=== PATIENT | male | born 2000 | race Caucasian/White ===

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

== ENCOUNTER 2021-02-13 07:03 | Outpatient (CLI) | payer SELFPAY ==
--- NOTE | 2021-02-13 07:14 | MR_ITS ---
WS: [id number] MRI RIGHT KNEE NONCONTRAST TECHNIQUE: Axial PD, coronal PD fat sat, coronal PD, sagittal PD, and sagittal PD fat-sat images obta ined. CLINICAL INFORMATION: RIGHT KNEE PAIN COMPARISON: None. FINDINGS: Distal quadriceps and patella tendons are intact. Small suprapatellar effusion. Normal ACL and PCL. C omplex tear involving the posterior horn lateral meniscus extending to the articular surface. Bluntin g of the posterior horn lateral meniscus with bucket-handle tear. Majority of the meniscus appears di splaced medially adjacent to the cruciate ligaments. Medial meniscus is normal in appearance. No bony contusion. Normal patella. No significant chondromalacia patella. Normal medial and lateral patellar retinaculum . Normal medial collateral ligament. Ligamentous injury involving the lateral collateral ligament wit h fluid and edema deep to the LCL. LCL appears intact. MR/MR knee RT wo con* [id number] IMPRESSION: 1. Normal anterior and posterior cruciate ligaments. 2. Complex bucket handle tear involving the lateral meniscus extending to the posterior horn articular surface with fluid and edema. Majority of the meniscu s displaced medially adjacent to the cruciate ligaments. 3. Ligamentous injury involving the lateral collateral ligament with fluid and edema deep to the LCL which appears grossly intact. Normal MCL. 4. Small suprapatellar effusion. 5. Normal patella.
== END 2021-02-13 07:04 | disposition home or self-care (01) ==
PROVIDERS: PCP Family Medicine; Visit Provider Nurse Practitioner Family
DX: M25.461 Effusion, right knee (principal); S83.271A Complex tear of lateral meniscus, current injury, right knee, initial encounter; X58.XXXA Exposure to other specified factors, initial encounter
CPT/HCPCS: 73721

== ENCOUNTER 2024-02-10 20:32 | Emergency (ER) | payer SELFPAY ==
[2024-02-10 20:33] VITALS: BP 150/90; PULSE 95; RESP 16; TEMP 36.7; O2SAT 99; BMI 21.9
--- NOTE | 2024-02-10 20:41 | ED_ITS ---
HPI - Overdose 2 General: Chief Complaint: Overdose Stated Complaint: overdose Time Seen by Provider: 02/10/24 20:34 Source: patient and EMS Mode of arrival: EMS Limitations: no limitations History of Present Illness: 23-year-old male states he had a history of drug abuse states he been clean and then today he had taken oxy. He states he is taking it recreational he states he took it roughly an hour or so ago patient was found unresponsive in a parking lot when EMS arrived he is diaphoretic with pinpoint pupils patient given Narcan he is now awake alert. Patient states that he did take the oxine regrets that he states he was just recreationally denies any SI or HI he has no complaints currently states he feels fine. Review of Systems 2 Const: Denies: fever(s), chills, body aches or change in appetite Eyes: Denies: blurry vision or eye discomfort ENMT: Denies: throat pain or dental pain Card: Denies: chest pain Resp: Denies: dyspnea GI: Denies: abdominal pain, nausea, vomiting or diarrhea : Denies: dysuria Musc: Denies: neck pain or back pain Skin/Breast: Denies: rash Neuro: Denies: headache(s) PFSH ED 2 PFSH: Social History Smoking and tobacco/nicotine status: never used tobacco/nicotine Physical Exam 2 Const: COMMON NORMALS: no acute distress, patient oriented x3 and healthy appearing HENMT: COMMON NORMALS: normocephalic and atraumatic HEAD & SCALP: n ormocephalic and atraumatic Eye: COMMON NORMALS: Equal, round and reactive pupils present and EOMs intact bilaterally PUPIL: Yes Equal, round and reactive pupils present Neck/C-Spine: COMMON NORMALS: full ROM and supple Chest: COMMONS NORMALS: normal inspection of the chest and normal palpation of entire chest wall Resp: COMMON NORMALS: normal respiratory effort, No retractions, No use of accessory muscles and clear to auscultation bilaterally AUSCULTATION: clear to auscultation bilaterally Cardio: COMMON NORMALS: regular rate, regular rhythm and No murmurs present (Cardio) RATE: regular rate RHYTHM: regular rhythm GI: COMMON NORMALS: Normal to inspection, nondistended, normoactive bowel sounds present, Soft to palpation, non-tender and no masses PALPATION: Yes Soft to palpation Extremity: COMMON NORMALS: normal to inspection and full ROM Neuro: COMMON NORMALS: patient oriented x3, moves all extremities and no focal motor deficits Psych: COMMON NORMALS: mental status grossly normal, Normal thought process present and cooperative THOUGHT PROCESS: Normal thought process present Skin: COMMON NORMALS: no rashes or lesions noted and no wounds GENERAL SKIN EXAM: no rashes or lesions noted Course 2 Vital Signs: Vital signs: Vital Signs Temperature 98.0 F 02/10/24 20:33 Pulse Rate 81 02/10/24 21:43 Respiratory Rate 22 H 02/10/24 21:09 Blood Pressure 150/58 02/10/24 21:43 Pulse Oximetry 96 02/10/24 21:43 Oxygen Delivery Me thod Room Air 02/10/24 21:09 MDM - Overdose Medical Decision Making Patient presents here with accidental overdose on opioid he is given Narcan by EMS observed him here he has been well-appearing he is stable for discharge he is follow-up with PCP return if worsening Medical Records I reviewed the patient's medical records. Lab Data I reviewed the patient's lab results. 02/10/24 20:34 02/10/24 20:34 Laboratory Results WBC 11.63 10^3/uL (3.29-11.43) H 02/10/24 20:34 RBC 4.94 10^6/uL (3.85-5.65) 02/10/24 20:34 Hgb 14.40 g/dL (11.27-16.99) 02/10/24 20:34 Hct 44.3 % (37-53) 02/10/24 20:34 MCV 89.7 fl (82-101) 02/10/24 20:34 MCH 29.1 pg (27-33) 02/10/24 20:34 MCHC 32.5 g/dL (30-55) 02/10/24 20:34 RDW 13.8 % (12.1-15.1) 02/10/24 20:34 Plt Count 259 10^3/cmm (157-399) 02/10/24 20:34 MPV 12.4 fL (7.4-10.4) H 02/10/24 20:34 Neut % (Auto) 54.1 % 02/10/24 20:34 Lymph % (Auto) 36.9 % 02/10/24 20:34 [place] % (Auto) 7.2 % 02/10/24 20:34 Eos % (Auto) 0.7 % 02/10/24 20:34 Baso % (Auto) 0.9 % 02/10/24 20:34 Neut # (Auto) 6.30 10^3/uL (1.8-7.7) 02/10/24 20:34 Lymph # (Auto) 4.3 10^3/uL (0.8-4.8) 02/10/24 20:34 [place] # (Auto) 0.8 10^3/uL (0.2-0.9) 02/10/24 20:34 Eos # (Auto) 0.1 10^3/uL (0.0-0.8) 02/10/24 20:34 Baso # (Auto) 0.1 10^3/uL (0.0-0.1) 02/10/24 20:34 Nucleated RBC % (auto) 0 % 02/10/24 20:34 Nucleated RBCs # 0.0 /100WBC 02/10/24 20:34 Sodium 143 mmol/L (136-145) 02/10/24 20:34 Potassium 2.9 mmol/L (3.5-5.1) L 02/10/24 20:34 Chloride 104 mmol/L (98-107) 02/10/24 20:34 Carbon Dioxide 27 mmol/L (22-29) 02/10/24 20:34 Anion Gap 14.9 (5-19) 02/10/24 20:34 BUN 15 mg/dL (6-20) 02/10/24 20:34 Creatinine 1.0 mg/dL (0.7-1.2) 02/10/24 20:34 GFR Calculation 93.4 mL/min (90-130) 02/10/24 20:34 Glucose 238 mg/dL (65-115) H 02/10/24 20:34 Calculated Osmolality 305 mOsm/kg (285-295) H 02/10/24 20:34 Calcium 9.6 mg/dL (8.5-10.5) 02/10/24 20:34 Total Bilirubin 0.9 mg/dL (0.15-1.2) 02/10/24 20:34 AST 29 U/L (0-40) 02/10/24 20:34 ALT 25 U/L (0-41) 02/10/24 20:34 Alkaline Phosphatase 79 U/L (40-130) 02/10/24 20:34 Total Protein 7.6 g/dL (6.6-8.7) 02/10/24 20:34 Albumin 5.1 g/dL (3.5-5.2) 02/10/24 20:34 Globulin 2.5 g/dL (1.3-4.6) 02/10/24 20:34 All radiology interpretation(s) finalized by discharge EKG Data EKG 1: I personally reviewed and interpreted this EKG as follows: EKG interpretation date: 02/10/24 EKG interpretation time: 21:07 Interpretation: nsr hr [address] or t wave abnormalities qrs 98 [id number] Discharge Plan Discharge Patient Disposition: Home Clinical Impression: Drug overdose Condition: Stable Prescriptions: No Action No Known Home Medications Discharge Orders: Discharge ED (Routine); Ordered 02/10/24 Ordered By: Delmy Hanna Referrals: Wilder Watters MD [Primary Care Provider] - 1-3 days Discharge Diet: Advance as tolerated Discharge Activity: Resume usual activity Patient Instructions: Narcotic Safety (ED) Coding Level of Care Code ED Geosciences Faculty Member for Janeth Cho
[2024-02-10 20:57] LABS: Basophils # 0.1 10^3/uL (0.0-0.1); Basophils % 0.9 %; Eosinophils # 0.1 10^3/uL (0.0-0.8); Eosinophils % 0.7 %; Hematocrit 44.3 % (37-53); Lymphocytes # 4.3 10^3/uL (0.8-4.8); Lymphocytes % 36.9 %; Mean Corpuscular HGB Conc 32.5 g/dL (30-55); Mean Corpuscular Hemoglobin 29.1 pg (27-33); Mean Corpuscular Volume 89.7 fl (82-101); Mean Platelet Volume 12.4 fL (7.4-10.4); Monocytes # 0.8 10^3/uL (0.2-0.9); Monocytes % 7.2 %; Neutrophils % 54.1 %; Nucleated Red Blood Cells % 0 %; Platelet Count 259 10^3/cmm (157-399); Red Blood Count 4.94 10^6/uL (3.85-5.65); Red Cell Distribution Width 13.8 % (12.1-15.1); White Blood Count 11.63 10^3/uL (3.29-11.43)
[2024-02-10 21:09] VITALS: BP 145/66; PULSE 88; RESP 22; O2SAT 95
[2024-02-10 21:27] LABS: Alanine Aminotransferase 25 U/L (0-41); Albumin Level 5.1 g/dL (3.5-5.2); Alkaline Phosphatase 79 U/L (40-130); Anion Gap 14.9 (5-19); Aspartate Amino Transferase 29 U/L (0-40); Blood Urea Nitrogen 15 mg/dL (6-20); Calcium 9.6 mg/dL (8.5-10.5); Carbon Dioxide 27 mmol/L (22-29); Chloride 104 mmol/L (98-107); Globulin 2.5 g/dL (1.3-4.6); Glomerular Filtration Rate 93.4 mL/min (90-130); Glucose 238 mg/dL (65-115); Osmolality Calculated 305 mOsm/kg (285-295); Sodium 143 mmol/L (136-145); Total Bilirubin 0.9 mg/dL (0.15-1.2); Total Protein 7.6 g/dL (6.6-8.7)
[2024-02-10 21:31] LABS: Potassium 2.9 mmol/L (3.5-5.1)
[2024-02-10 21:43] VITALS: BP 150/58; PULSE 81; O2SAT 96
[2024-02-10] MEDS: potassium chloride ER 20 mEq Tablet 60 MEQ PO (21:47)
[2024-02-10] MEDS: ondansetron 4 MG Tablet PO (21:50)
[2024-02-10 21:54] VITALS: BP 150/58; PULSE 80; RESP 16; O2SAT 98
== END 2024-02-10 21:46 | disposition home or self-care (01) ==
PROVIDERS: Emergency Provider Emergency Medicine; PCP Family Medicine
DX: T40.2X1A Poisoning by other opioids, accidental (unintentional), initial encounter (principal)
CPT/HCPCS: 80053; 85025; 99284; Q0162